=== PATIENT | male | born 1940 | race Caucasian/White ===

== ENCOUNTER 2018-01-19 15:33 | Inpatient (IN) | payer MEDICARE, BC ==
[~2018-01-19 15:33] MED LIST: Iopamidol 370 76% 100 ML VIAL ONE
[2018-01-19] MEDS ORDERED: Famotidine/PF 20 mg/2ml Vial ONE (15:46)
[2018-01-19] MEDS ORDERED: Labetalol HCl 100 MG/20 ML VIAL SLOW IVP PRN (16:11)
[2018-01-19 16:51] VITALS: BMI 25.2
--- NOTE | 2018-01-19 17:10 | PRG ---
DATE OF SERVICE: 01/19/2018 SUBJECTIVE: Mr. Randall is a 77-year-old gentleman transferred from [facility] for stroke. His family brought him into the hospital for new onset weakness, confusion and altered mental status. He presented at [facility] where a noncontrast head CT was performed, which revealed the presence of a right thalamic stroke and no evidence for hemorrhage. Subsequent to that, he underwent a CT angiogram, which revealed the presence of occlusion or near occlusion of the right posterior cerebral artery. After that time, he had an MRI scan, which showed infarct in the right thalamic region and a small area of restricted diffusion within the right side of the brainstem. He was noted to become more lethargic with a worsening exam over the course of his evaluation. Due to concerns for enlarging thrombus involving the posterior circulation, he was then transferred to [place] for possible intervention. Of note, the patient was on a blood thinner, which prohibited use of TPA. The initial NIH score at [facility] was reported near 17. Upon arrival to [facility], he went straight to the angiogram suite. I examined him there where he had had a dramatic improvement in his exam. His speech was clear. He was alert and oriented x3. He had a grossly normal strength in both the upper and lower extremities. He reported limited use of his left arm due to prior shoulder injury and pain. His compliance review officer strength was strong bilateral. He reported some blurred vision but stated that was baseline for him as he has a history of cataracts. He denied double vision and he denied any field defects. He underwent cerebral angiography which revealed an occluded branch of the right posterior cerebral artery. I was not able to access that through an approach from the left vertebral artery. The right vertebral artery was hypoplastic. Given his overall dramatic improvement in exam, I did not push forward with any additional interventional component. He remained awake and stable throughout the procedure. The plan will be admission with consultation to physical therapy and occupational therapy and the hospitalist service for medical management. He will undergo swallow evaluation and further determination as to risk factors for stroke. ESE
[2018-01-19] MEDS ORDERED: HumaLOG 300 UNITS/3 ML VIAL SC PRN ×2 (17:22)
[2018-01-19] MEDS ORDERED: Dextrose 5% in Water 1,000 ML IV PRN (17:22)
[2018-01-19] MEDS ORDERED: Dextrose 50% Abboject 50 ML SYRINGE SLOW IVP PRN (17:22)
[2018-01-19] MEDS: Sodium Chloride 0.9% 1,000 ML IV SCH (19:00)
--- NOTE | 2018-01-19 19:05 | CON ---
DATE OF CONSULTATION: 01/19/2018 TIME OF SERVICE: 1700. REASON FOR CONSULTATION: Medical management after acute stroke and coronary angiography. REQUESTING PHYSICIAN: Mekhi Bullock M.D. PRIMARY CARE PHYSICIAN: [facility]. HISTORY OF PRESENT ILLNESS: Mr. Randall is a 77-year-old male with history of bilateral lower extremit y DVTs, diverticulosis, hyperlipidemia, diabetes, hypothyroidism, who presents to an outside Emergenc y Department for evaluation of acute onset of left-sided weakness. The patient was apparently in [facility] and 2 hours prior to arrival there, the patient developed weakness to the left arm and leg, numbn ess to his face and left arm and slurred speech. He slumped over in his seat at [facility] and EMS was a ctivated. He was transported to [facility] where he did complain of a headache. He has comp lained of his left face being numb and right hand being numb as well. There, he underwent a CT angiogram that showed right posterior cerebral artery occlusion just distal to the origin and underwent an MRI of the brain that showed a right subacute thalamic infarct. Due t o the history of being on Xarelto, he is not a candidate for TPA, he was subsequently flown here for intervention. The patient arrived here by helicopter, was taken to the geophysical laboratory supervisor with Dr. Bullock. Cer ebral angiography revealed the right posterior cerebral artery to be patent. There was some distal r ight anterior cerebral artery occlusion, but it was too distal to be able to intervene on. Also did not explain the patient's symptoms. The procedure was subsequently aborted. The patient was transfe rred to the ICU post-procedure. We have been consulted for medical management. The patient is still currently sleepy from the [facility]. Denies any fevers or chills, nausea and vomiting. His strength in his left arm and leg is marke dly improved and the sensation is intact. PAST MEDICAL HISTORY: 1. Deep vein thrombosis, bilateral lower extremities. 2. Chronic anticoagulation with Xarelto. 3. Diverticulosis. 4. Hyperlipidemia. 5. Diabetes mellitus type 2. 6. Hypothyroidism. PAST SURGICAL HISTORY: Include, 1. Colonoscopy last in 2011. 2. Umbilical hernia repair in 1975. 3. Left TKA in February 2017. 4. Tonsillectomy in 1962. 5. He had a skull fracture depression correction in 1977 after getting kicked in the head by a horse . HOME MEDICATIONS: 1. Lipitor 40 mg p.o. at bedtime. 2. Glucovance (glyburide/metformin) 2.5/500 one p.o. q.a.m. 3. Levothyroxine 75 mcg daily. 4. Xarelto 20 mg daily. The patient has been on MiraLax, MetroGel and Dexter, but is taking these at present. ALLERGIES: NKDA. FAMILY HISTORY: Negative for dad with Parkinson's. Mom with stroke in her older years. No history of premature diseases. SOCIAL HISTORY: Negative for habits x3. He is . His and son accompany him. We discuss ed advance directives. They immediately said he wanted to be a DNR, however, after explaining myself , the patient does want to be intubated, CPR to be performed and cardioversion if necessary if he schuler s not have a terminal illness. His does have an advanced directive/medical power of cream dipper an d will bring the documents. REVIEW OF SYSTEMS: All systems were reviewed and negative except as stated as per HPI. PHYSICAL EXAMINATION: VITAL SIGNS: He is afebrile, temperature is 98.7, pulse 64, blood pressure 110/64, respiratory rate 18, satting 99% on room air. GENERAL: He is awake. He is alert. He is oriented to person, place and time. He is in no acute di stress. He is somewhat groggy and still slurring speech a little bit, his family says from the [facility]. His speech was apparently better on arrival. HEENT: Normocephalic and atraumatic. His face is symmetrical. His pupils are equal, round and reac tive to light bilaterally, mucous membranes are moist. He has no visible lesion, no thrush. NECK: Supple. There is no lymphadenopathy, JVD or thyromegaly. He has normal carotid upstrokes wit hout bruits. LUNGS: Clear to auscultation bilaterally. No wheezing, no rales, no rhonchi. No prolonged expirato ry phase. CARDIOVASCULAR: Normal S1, S2. He is regular. He has no audible murmurs. ABDOMEN: Soft, is nontender, nondistended. No mass, no organomegaly. Normoactive bowel sounds pres ent in all 4 quadrants. EXTREMITIES: No cyanosis, no clubbing, no edema. SKIN: Warm, moist and well perfused. No rashes or lesions. Does have a postop dressing present on his right groin where they went for arterial access. NEUROLOGIC: Cranial nerves II-XII are grossly intact. He has 5/5 strength in both of his extremitie s, this includes the upper and lower extremity extensors, flexors of the elbows and knees and the wri sts and ankles. He does not have any focal neurologic deficits. Speech is somewhat slurred as if he was intoxicated or on pain meds. He does not appear to have any dysarthria. MUSCULOSKELETAL: Normal to inspection. He has crepitus in his left shoulder. The large joints appe ared normal. His left knee incision is well healed. LABORATORY DATA: Sodium 140, potassium 4.1, chloride 104, bicarb 28, BUN 9, creatinine 0.51, calcium 9.2 and glucose 186. His CBC showed a white count of 5.4, hemoglobin is 15.5, hematocrit of 45.3 an d platelet count is 195,000. PT was normal at 13.8 and INR was 1.1. Liver function completely withi n normal limits. CT angiogram of the right posterior cerebral artery occlusion just distal to the origin and MRI of th e brain showed a new/recent anterior right thalamic infarct. ASSESSMENT AND PLAN: 1. Acute posterior cerebral artery stroke: The patient is on Xarelto, which probably saved his life . He is not on any antiplatelet agents. He is going to get aspirin per Neurosurgery in the morning. We will suspect he will need to be on his Xarelto long-term plus a baby aspirin. Stroke service segura s been activated. We will follow up with Neurology recommendations. PT, OT and ST have been consult ed, though he does not appear to have any current deficits. He is normally on Lipitor 40 mg p.o. at bedtime. We will get a morning lipid profile and increase it to 80 mg. Whatever his cholesterol is, it is likely going to be too high. 2. Diabetes mellitus type 2. The patient will be on hold for his Glucovance for now. He did have c ontrast with his angiograms and this will try to protect his kidneys. We will use sliding scale insu sara for correction. 3. Hypothyroidism, on levothyroxine. We will continue. 4. History of deep venous thrombosis on Xarelto. We will continue if okay with Dr. Bullock. 5. Hyperlipidemia, as above. 6. Diverticulosis, not currently active. Thank you very much for this consult. We will follow along with you.
[2018-01-19] MEDS ORDERED: Rivaroxaban 10 MG TAB PO SCH (21:00)
[2018-01-20] MEDS: Atorvastatin Calcium 40 MG TAB PO SCH ×2 (01:11→19:37)
[2018-01-20] MEDS: Sodium Chloride 0.9% 1,000 ML IV SCH ×3 (04:48→21:43)
[2018-01-20 05:16] LABS: #Lymphocytes 0.7 thou/uL (1.20-3.40); #Monocytes 0.1 thou/uL (0.11-0.59); #Neutrophils 5.3 thou/uL (1.40-6.50); %Basophils 0.2 % (0.0-1.0); %Eosinophils 0.1 % (0.0-10.0); %Lymphocytes 11.7 % (21.0-51.0); %Monocytes 1.9 % (0.0-10.0); Hemoglobin 14.9 g/dL (14.0-18.0); Mean Corpuscular Hemoglobin 32.3 pg (27.0-31.0); Mean Corpuscular Volume 97.8 fl (80.0-94.0); Mean Platelet Volume 5.8 fL (7.4-10.4); Platelet Count 193 thou/uL (130-400); RBC Distribution Width 11.6 % (11.5-14.5); Red Blood Cell (RBC) Count 4.61 mill/uL (4.70-6.10); White Blood Cell (WBC) Count 6.2 thou/uL (4.8-10.8)
[2018-01-20 05:17] LABS: Hemoglobin A1c 6.1 % (4.0-6.0)
[2018-01-20 05:40] LABS: Anion Gap 12 mmol/L (10-20); BUN (Urea Nitrogen) 9 mg/dL (8.4-25.7); Calc. Creatinine Clearance 100 mL/min (70-130); Calcium 8.5 mg/dL (7.8-10.44); Carbon Dioxide 21 mmol/L (23-31); Cardiac Risk 4.3 (Less than 4.5); Chloride 108 mmol/L (98-107); Cholesterol 196 mg/dl (< 200 Desired); Estimated GFR-MDRD Greater than 90; Glucose 196 mg/dL (83-110); HDL Cholesterol 46 mg/dL (>60 Neg Risk); LDL Cholesterol, Calculated 140 mg/dL; Magnesium 1.9 mg/dL (1.6-2.6); Potassium 3.9 mmol/L (3.5-5.1); Sodium 137 mmol/L (136-145); Triglycerides 50 mg/dL (Less than 150)
[2018-01-20] MEDS: Levothyroxine Sodium 75 MCG TAB PO SCH (07:16)
--- NOTE | 2018-01-20 09:46 | CON ---
DATE OF CONSULTATION: 01/20/2018 HISTORY: Mr. Randall is a 77-year-old male who was admitted with a thrombotic cerebrovascular accident . He went to the [facility] for a workup with Dr. Bullock last night. No interventions were needed. He subsequently was admitted to the Critical Care Unit. PAST MEDICAL HISTORY: 1. Remarkable for DVT, on chronic anticoagulation. 2. Diverticulosis. 3. Lipid disorder. 4. Diabetes. 5. Hypothyroidism. 6. History of a herniorrhaphy. 7. Knee replacement. 8. History of tonsillectomy. 9. History of a skull fracture after being kicked by a horse. MEDICATIONS: Prior to admission, he was on Lipitor, Glucovance, Synthroid, Xarelto. ALLERGIES: He reports no drug allergies. FAMILY HISTORY: Positive for vascular disease. Negative for lung disease at an early age. SOCIAL HISTORY: He is nonsmoker, nondrinker. His son and his are in the room. REVIEW OF SYSTEMS: Not obtainable. PHYSICAL EXAMINATION: GENERAL: He is mumbling. He will answer questions and say he is okay. He is weaker on the left lev n on the right. He is left handed according to his son. VITAL SIGNS: Blood pressure 103/47, heart rate is in the high 40s to low 50s in sinus rhythm. Respiratory rate is in the teens, O2 sat 94%. HEENT: Sclerae is anicteric. NECK: Supple. LUNGS: Clear. HEART: Regular rhythm. S1 and S2 are normal. ABDOMEN: Soft, nontender. EXTREMITIES: Warm without clubbing, cyanosis, or edema. LABORATORY DATA: White count 6.2, hemoglobin 14.9, platelets 193. Sodium 137, potassium 3.9, chloride 108, bicarbonate 21, BUN 9, creatinine 0.66. IMPRESSION: Thrombotic cerebrovascular accident, clinically stable at this time. Protecting his air way. Swallowing evaluation will be performed. This is a 50-minute consult, greater than 50% of the time was spent on the unit coordinating care.
--- NOTE | 2018-01-20 10:33 | PRG ---
DATE OF SERVICE: 01/20/2018 Mr. Randall was admitted yesterday for a posterior circulation infarct. His NIH score late yesterday w as 3. He has had some fluctuations in his exam and currently according to his nurse the NIH score is 7. He underwent CT examination early this morning which was negative for hemorrhage. The CT does r eveal a small thalamic infarct on the right side and a small infarct of the brain stem on the right s nikole. Both of these are consistent with infarcts that were present on his MRI scan prior to transfer and these do not appear to be unchanged in size, nor does there appear to be any significant edema or mass effect. I met with the family today. I indicated to them that I expect him to have fluctuations in his exam. I also reviewed with him all of his imaging. The plan will be ongoing medical management moving fo rward. They can resume his anticoagulants at any time. He will need aggressive physical therapy, oc cupational therapy, and almost certainly need inpatient rehab placement. He will undergo swallow dell luations over the next couple of days. He may need NG placement and potentially PEG placement as he continues to recover. My expectation with Mr. Randall is that cognitively he should be okay. He may h ave residual deficits with respect to weakness and some cranial nerve dysfunction, but only time will tell and I explained to the family that this recovery process can be a long drawn out one. We will repeat CT examination tomorrow. We will keep him in the ICU throughout the remainder of the day grace szymanski
--- NOTE | 2018-01-20 11:50 | CON ---
DATE OF CONSULTATION: 01/20/2018 CONSULTING PHYSICIAN: Dr. Bullock IMPRESSION: Right thalamic and brainstem infarct resulting in some ophthalmoplegia, left facial droo p, significant dysarthria and left upper extremity weakness. The patient was on Xarelto prior to the infarct. PLAN: 1. Aspirin has been started. 2. Carotid ultrasound. 3. Speech therapy evaluation of swallowing and determine whether a need for PEG tube placement is ne cessary. Mr. Randall is a 77-year-old man who was in a good state of health prior to developing some left-sided weakness. He was seen at the [facility] where CT angiogram showed a right posterior ce rebral artery occlusion. MRI of the brain showed a right subacute thalamic infarct as well as appare ntly some right brain stem ischemic injury. The patient was taken to the Corporate Law Specialist by Dr. Bullock. Unf ortunately, nothing was able to be done due to the distal nature of the occlusions. Apparently there was some right anterior cerebral artery stenosis as well. He has been taken to the ICU where he has continued to act a bit unusual with some picking and fetching at the linens and not keeping his eyes open and acting appropriately. PAST MEDICAL HISTORY: DVT, diverticulitis, hyperlipidemia, diabetes, hypothyroidism. MEDICATIONS: Lipitor, Glucovance, levothyroxine, and Xarelto. ALLERGIES: None. SOCIAL HISTORY: No tobacco use. FAMILY HISTORY: Noncontributory. REVIEW OF SYSTEMS: Not obtainable. PHYSICAL EXAMINATION: GENERAL: He is a well-nourished elderly man lying in bed in no distress. VITAL SIGNS: Blood pressure 104/50, pulse 49, respirations 15, saturations 96%. HEENT: Pupils are pinpoint and nonreactive. His eyes appear to be conjugate, doll's head maneuver d id not elicited lateral deviation. I could not get the patient to move his eyes in an appropriate fa shion to commands. NECK: Supple, no lymphadenopathy. EXTREMITIES: No cyanosis. NEUROLOGIC: He is lying with his eyes closed. He moves his right arm spontaneously as if he was ethan tyler out for things. There is a left facial droop. The left upper extremity could not be held up a gainst gravity. Left lower extremity was a bit difficult to test in that he offered resistance to ho lding the leg down to the bed, but would not raise it appropriately. Gait was not testable. No abno rmal movements were seen. EKG shows sinus bradycardia. SUMMARY: Elderly man with a thrombotic event in the posterior circulation with some significant defi cits on the left side. I have explained the condition to the family. I agree with the addition of a spirin. We can proceed with his workup and rehab plans.
--- NOTE | 2018-01-20 12:13 | CT ---
PRELIMINARY REPORT/[facility]/EMERGENTY AFTER-HOURS PROCEDURE CT Head Without Intravenous Contrast CLINICAL HISTORY: 77 years old, male; Signs and symptoms; Other: Stroke TECHNIQUE: Axial computed tomography images of the head/brain without intravenous contrast. COMPARISON: No relevant prior studies available. FINDINGS: Age-indeterminate right thalamic infarction on image 17 Brain: Mild volume loss No hemorrhage. Mild white matter disease. Chronic right basal ganglia lacunar infarction No edema. Ventricles: Unremarkable. No ventriculomegaly. Bones/joints: Unremarkable. No acute fracture. Soft tissues: Unremarkable. Sinuses: Unremarkable as visualized. No acute sinusitis. Mastoid air cells: Unremarkable as visualized. No mastoid effusion. IMPRESSION: Age-indeterminate right thalamic infarction which may be acute/subacute. Further evaluation as clinic ally indicated with MRI No intracranial hemorrhage. Please see discussion above. Thank you for allowing us to participate in the care of your patient. Dictated and Authenticated by: Quinn Andrade MD 01/20/2018 4:38 AM Central Time ([place] & [place]) CT BRAIN WITHOUT CONTRAST: History: Stroke. Comparison: None. Technique: Noncontrast head CT is performed from skull base to skull vertex. FINDINGS: This report is in agreement with the preliminary report by [facility]. Hypoattenuation in the right thalamus is indeterminate. MRI is recommended. POS: CURT
--- NOTE | 2018-01-20 13:06 | PDOC.PN ---
- Subjective Encounter Start Date: 01/20/18 Encounter Start Time: 13:15 Subjective: Patient unchanged today. Mental status and alertness fluctuating. Denies -: pain. Not able to communicate anything further. - Objective MAR Reviewed: Yes Vital Signs & Weight: Vital Signs (12 hours) Temp Pulse Pulse BP BP Pulse Ox Pulse Ox 01/20/18 12:00 97.6 F 01/20/18 10:54 90/55 L 90/60 01/20/18 10:09 52 L 58 L 101/49 L 98/68 98 96 01/20/18 08:00 97.4 F L Weight Admit Weight 166 lb Weight 166 lb 0.129 oz Most Recent Monitor Data Heart Rate from ECG 53 NIBP 103/47 NIBP BP-Mean 60 Respiration from ECG 16 SpO2 97 I&O: 01/19/18 01/20/18 01/21/18 06:59 06:59 06:59 Intake Total 1018 0 Output Total 550 1 Balance 468 -1 Result Diagrams: 01/20/18 04:51 01/20/18 04:51 Additional Labs: Accuchecks 01/20/18 01/19/18 11:22 22:16 POC Glucose 165 H 180 H Phys Exam - Physical Examination Constitutional: NAD HEENT: moist MMs Respiratory: no wheezing, no rales, no rhonchi Cardiovascular: RRR, no significant murmur Gastrointestinal: soft, positive bowel sounds Musculoskeletal: no edema Neurological: moves all 4 limbs Deviation from normal: dysphasia, unable to understand his speech, sleepy but arousable Dx/Plan (1) Right thalamic infarction Code(s): I63.9 - CEREBRAL INFARCTION, UNSPECIFIED Status: Acute (2) 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 Code(s): I63.211 - CEREBRAL INFRC DUE TO UNSP OCCLS OR STENOSIS OF R VERTEB ART ; I63.22 - CEREB INFRC DUE TO UNSP OCCLS OR STENOSIS OF BASILAR ARTERY Status : Acute (3) Dysphagia Code(s): R13.10 - DYSPHAGIA, UNSPECIFIED Status: Acute Comment: MBS and water Gustafson protocol per speech therapy recs, not safe to eat at this point (4) Diabetes mellitus type 2 in nonobese Code(s): E11.9 - TYPE 2 DIABETES MELLITUS WITHOUT COMPLICATIONS Status: Chronic (5) Hyperlipidemia Code(s): E78.5 - HYPERLIPIDEMIA, UNSPECIFIED Status: Chronic Comment: LDL elevated at 140 on Atorvastatin 40mg, increased to 80mg daily (6) Hypothyroidism Code(s): E03.9 - HYPOTHYROIDISM, UNSPECIFIED Status: Chronic (7) Hx of deep venous thrombosis Code(s): Z86.718 - PERSONAL HISTORY OF OTHER VENOUS THROMBOSIS AND EMBOLISM Status: Chronic Comment: on chronic Xarelto (8) Diverticulosis Code(s): K57.90 - DVRTCLOS OF INTEST, PART UNSP, W/O PERF OR ABSCESS W/O BLEED Status: Chronic - Plan cont current plan of care, PT/OT, speech therapy, DVT proph w/SCDs possible MBS tomorrow if more alert * . - Discharge Encounter end time: 13:30
[2018-01-20] MEDS: Aspirin 325 mg Enteric Coated Tablet PO SCH (14:46)
--- NOTE | 2018-01-20 16:11 | ULT ---
CAROTID ULTRASOUND: HISTORY: Stroke. COMPARISON: None. TECHNIQUE: Jaimes scale, color flow, Doppler imaging, and spectral waveform analysis was performed of the carotid and vertebral arteries. FINDINGS: RIGHT CAROTID: No significant atherosclerotic disease. Peak systolic velocity of the common carotid artery is 51.5 cm/s. Peak systolic velocity of the internal carotid artery is 38.5 cm/s. Systolic ICA to CCA ratio is 0.75. LEFT CAROTID: No significant atherosclerotic disease. Peak systolic velocity of the common carotid artery is 59.8 cm/s. Peak systolic velocity of the internal carotid artery is 50.3 cm/s. Systolic ICA to CCA ratio is 0.84. Antegrade flow in bilateral vertebral arteries. IMPRESSION: No sonographic evidence of hemodynamically significant stenosis. POS: CURT
[2018-01-20] MEDS ORDERED: Rivaroxaban 10 MG TAB PO SCH (21:00)
[2018-01-20] MEDS: Enoxaparin Sodium 80 MG/0.8 ML SYRINGE SC SCH (21:41)
[2018-01-20] MEDS ORDERED: Lorazepam 2 MG/ML VIAL SLOW IVP SCH (21:45)
[2018-01-21] MEDS: Levothyroxine Sodium 75 MCG TAB PO SCH (06:20)
[2018-01-21] MEDS: Aspirin 325 mg Enteric Coated Tablet PO SCH (07:16)
[2018-01-21] MEDS: Atorvastatin Calcium 40 MG TAB PO SCH (07:16)
[2018-01-21] MEDS: Sodium Chloride 0.9% 1,000 ML IV SCH ×2 (08:11→22:32)
[2018-01-21] MEDS: Enoxaparin Sodium 80 MG/0.8 ML SYRINGE SC SCH ×2 (08:11→22:32)
--- NOTE | 2018-01-21 09:45 | PDOC.PN ---
- Subjective Encounter Start Date: 01/21/18 Encounter Start Time: 11:00 Subjective: Patient agitated last night. No improvement with Ativan. Just fell asleep -: a few minutes ago. - Objective MAR Reviewed: Yes Vital Signs & Weight: Weight Admit Weight 166 lb 0.129 oz Weight 166 lb 0.129 oz Most Recent Monitor Data Heart Rate from ECG 63 NIBP 104/61 NIBP BP-Mean 66 Respiration from ECG 24 SpO2 95 I&O: 01/20/18 01/21/18 01/22/18 06:59 06:59 06:59 Intake Total 1018 2535 0 Output Total 550 4 0 Balance 468 2531 0 Result Diagrams: 01/20/18 04:51 01/20/18 04:51 Additional Labs: Accuchecks 01/21/18 01/21/18 01/20/18 06:28 00:02 16:40 POC Glucose 96 127 H 139 H 01/20/18 11:22 POC Glucose 165 H Phys Exam - Physical Examination Constitutional: NAD HEENT: moist MMs Respiratory: no wheezing, no rales, no rhonchi Cardiovascular: RRR, no significant murmur Gastrointestinal: soft, positive bowel sounds Deviation from normal: sleeping, will not try to wake up at this point Dx/Plan (1) Right thalamic infarction Code(s): I63.9 - CEREBRAL INFARCTION, UNSPECIFIED Status: Acute (2) 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 Code(s): I63.211 - CEREBRAL INFRC DUE TO UNSP OCCLS OR STENOSIS OF R VERTEB ART ; I63.22 - CEREB INFRC DUE TO UNSP OCCLS OR STENOSIS OF BASILAR ARTERY Status : Acute (3) Dysphagia Code(s): R13.10 - DYSPHAGIA, UNSPECIFIED Status: Acute Comment: water Gustafson protocol per speech therapy recs, not safe to eat at this point, possible MBS when more alert (4) Diabetes mellitus type 2 in nonobese Code(s): E11.9 - TYPE 2 DIABETES MELLITUS WITHOUT COMPLICATIONS Status: Chronic (5) Hyperlipidemia Code(s): E78.5 - HYPERLIPIDEMIA, UNSPECIFIED Status: Chronic Comment: LDL elevated at 140 on Atorvastatin 40mg, increased to 80mg daily (6) Hypothyroidism Code(s): E03.9 - HYPOTHYROIDISM, UNSPECIFIED Status: Chronic (7) Hx of deep venous thrombosis Code(s): Z86.718 - PERSONAL HISTORY OF OTHER VENOUS THROMBOSIS AND EMBOLISM Status: Chronic Comment: can't swallow Xarelto right now, giving full dose Lovenox (8) Diverticulosis Code(s): K57.90 - DVRTCLOS OF INTEST, PART UNSP, W/O PERF OR ABSCESS W/O BLEED Status: Chronic - Plan cont current plan of care, PT/OT, speech therapy, DVT proph w/lovenox, DVT proph w/SCDs * . - Discharge Day Encounter end time: 11:10
--- NOTE | 2018-01-21 13:29 | PRG ---
DATE OF SERVICE: 01/21/2018 SUBJECTIVE: Mr. Randall remains about the same. There has really been no significant neurological imp rovement. He is intermittently interactive with his family. PHYSICAL EXAMINATION: VITAL SIGNS: He is afebrile, heart rate 52, respiratory rate 20, oximetry is 97% on room air, blood pressure 104/61. LUNGS: Clear. HEART: Regular rhythm. ABDOMEN: Soft. IMPRESSION AND PLAN: Status post thrombotic cerebrovascular accident. He will be transferred to the stroke unit today. He has met with his daughter and his and answered all their questions.
[2018-01-21] MEDS ORDERED: Haloperidol Lactate 5 MG/ML VIAL SLOW IVP PRN (14:14)
--- NOTE | 2018-01-21 16:24 | CON ---
DATE OF CONSULTATION: 01/21/2018 REASON FOR CONSULTATION: Recent cerebrovascular accident and atrial fibrillation. HISTORY OF PRESENT ILLNESS: Mr. Randall is a 77-year-old gentleman who has no previous history of unde rlying atrial fibrillation, recently presented with stroke-like symptoms. He was seen and evaluated at [facility]. He was sent emergently to [facility] via helicopter. He underwent angio by Dr. Bullock. Results are currently pending. Family states he has been somnolent, sleeping all day and not been very arousable. He had a brief ep isode of atrial fibrillation and converted back to sinus. He has no previous history of underlying a trial fibrillation. He is on chronic Xarelto at 20 mg 1 p.o. q.a.m. for a chronic DVT. PAST MEDICAL HISTORY: Diverticulosis, hyperlipidemia, diabetes mellitus, DVT, colonoscopy, hernia re pair, total knee replacement, tonsillectomy and skull fracture. MEDICATIONS: Xarelto 20 mg daily, levothyroxine, Glucovance and Lipitor. ALLERGIES: None. FAMILY HISTORY: Negative for CAD. SOCIAL HISTORY: Negative tobacco or alcohol use. REVIEW OF SYSTEMS: Unobtainable. PHYSICAL EXAMINATION: VITAL SIGNS: Blood pressure 99/62, pulse 54, temperature 97.7. GENERAL: Patient is currently somnolent and does not awaken easily to voice. NEUROLOGIC: The patient is alert and oriented times 3 with no focal neurologic deficits. HEENT: Sclerae without icterus. Mouth has moist mucous membranes with normal pallor. NECK: No JVD. Carotid upstroke brisk. No bruits bilaterally. LUNGS: Clear to auscultation with unlabored respirations. BACK: No scoliosis or kyphosis. CARDIAC: Regular rate and rhythm with normal S1 and S2. No S3 or S4 noted. No significant rubs, murmurs, thrills, or gallops noted throughout the precordium. PMI is not displa philly. There is no parasternal heave. ABDOMEN: Soft, nontender, nondistended. No peritoneal signs present. No hepatosplenomegaly. No ab normal striae. EXTREMITIES: 2+ femoral and 2+ dorsalis pedis pulses. No cyanosis, clubbing, or edema. SKIN: No gross abnormalities. PERTINENT LABORATORY DATA: Hemoglobin 14.9, creatinine 0.9, glucose 196. IMPRESSION: 1. Brief episode of atrial fibrillation. 2. Cerebrovascular accident. 3. Diabetes mellitus. 4. History of deep venous thrombosis. RECOMMENDATIONS: It is unknown whether his recent CVA as a cause of his dysrhythmia of atrial fibril lation or whether atrial fibrillation is the primary that has caused an embolic CVA. At this point, it seems trivial given that he is currently on long-term anticoagulation therapy. He is on Xarelto at 20 mg 1 p.o. q.a.m., which is felt to be of full dose. Given the recent findings, I would recommend changing to Eliquis at 5 mg one p.o. b.i.d. The evidence seems to be a little quoc r versus Xarelto. He is currently not taking p.o. and has failed swallow study. We will continue Lo venox at 80 mg subcutaneous b.i.d. until he is able to take p.o. Echo with Doppler pending and will be reviewed.
--- NOTE | 2018-01-21 18:15 | PRG ---
DATE OF SERVICE: 01/21/2018 SUBJECTIVE: Mr. Randall has now been transitioned from the ICU to the Stroke Unit. He is sleeping cur rently as his sleep-wake cycles are disrupted. Last night, he was quite agitated. I did give him a low dose of Valium to assist with sleep. I had a lengthy discussion again with the family today rega rding his diagnosis, images and plans moving forward. I have reached out and discussed his case with the rehabilitation counsellor and they will work to get him to rehab as soon as possible. He has had in the las t 24 hours, bouts of atrial fibrillation and sinus bradycardia. I also discussed with Dr. Ari marti. He will see the patient and make any adjustments as necessary. He is currently on Xarelto, which he was on prior to his admission, presumably for atrial fibrillation. Mr. Randall will need to undergo further evaluation with respect to his swallow. He will need to have a nutrition over the next 24 hours. If need be, we will use an NG tube. Depending on how sign ificant his swallow problem is, we may have to resort to a PEG.
[2018-01-22] MEDS: Dextrose 5% in Water 1,000 ML IV SCH ×2 (03:39→17:02)
[2018-01-22] MEDS: Sodium Chloride 0.9% 1,000 ML IV SCH (05:51)
[2018-01-22 06:04] LABS: #Eosinphils 0.2 thou/uL (0.0-0.7); #Lymphocytes 1.8 thou/uL (1.20-3.40); #Monocytes 0.8 thou/uL (0.11-0.59); #Neutrophils 3.9 thou/uL (1.40-6.50); %Basophils 0.5 % (0.0-1.0); %Eosinophils 3.4 % (0.0-10.0); %Lymphocytes 26.7 % (21.0-51.0); %Monocytes 11.6 % (0.0-10.0); %Neutrophils 57.8 % (42.0-75.0); Hemoglobin 14.9 g/dL (14.0-18.0); Mean Corpuscular Hemoglobin 32.9 pg (27.0-31.0); Mean Corpuscular Volume 96.8 fl (80.0-94.0); Mean Platelet Volume 6.3 fL (7.4-10.4); Platelet Count 141 thou/uL (130-400); RBC Distribution Width 11.8 % (11.5-14.5); Red Blood Cell (RBC) Count 4.54 mill/uL (4.70-6.10); White Blood Cell (WBC) Count 6.7 thou/uL (4.8-10.8)
[2018-01-22 06:16] LABS: Anion Gap 10 mmol/L (10-20); BUN (Urea Nitrogen) 10 mg/dL (8.4-25.7); Calc. Creatinine Clearance 103 mL/min (70-130); Calcium 7.9 mg/dL (7.8-10.44); Carbon Dioxide 23 mmol/L (23-31); Chloride 108 mmol/L (98-107); Estimated GFR-MDRD Greater than 90; Glucose 87 mg/dL (83-110); Potassium 3.4 mmol/L (3.5-5.1); Sodium 138 mmol/L (136-145)
[2018-01-22] MEDS: Levothyroxine Sodium 75 MCG TAB PO SCH (07:16)
[2018-01-22] MEDS: Aspirin 325 mg Enteric Coated Tablet PO SCH (07:17)
[2018-01-22] MEDS: Enoxaparin Sodium 80 MG/0.8 ML SYRINGE SC SCH (08:38)
--- NOTE | 2018-01-22 10:28 | PRG ---
DATE OF SERVICE: 01/22/2018 Mr. Randall continues to recover in the Stroke Unit from a small brain stem and right thalamic stroke. The told me late yesterday evening he was rather coherent with respect to his speech and able t o carry on a meaningful conversation. He continues to sleep quite a bit in the days and remains agit ated more so at night. Await disposition planning toward inpatient rehabilitation. He will have ano ther swallow evaluation performed today, but I am not optimistic he will pass. I did discuss this in more detail with Speech Therapy and they are under the impression that he may not do well with respe ct to his swallowing over the short term. As such, I did mention to his , the likely need for a PEG tube placement as he continues to recover from this stroke. I advocated for aggressive physical therapy and occupational therapy.
--- NOTE | 2018-01-22 12:02 | PDOC.PN ---
- Subjective Encounter Start Date: 01/22/18 Encounter Start Time: 12:05 -: non-verbal Subjective: Pt examined, family at bed side, no new complain - Objective MAR Reviewed: Yes Vital Signs & Weight: Vital Signs (12 hours) Temp Pulse Resp BP Pulse Ox 01/22/18 07:30 98.0 F 66 12 135/77 96 01/22/18 03:52 98.6 F 66 18 134/76 95 Weight Admit Weight 166 lb 0.129 oz Weight 166 lb 0.129 oz Most Recent Monitor Data Heart Rate from ECG 63 NIBP 104/61 NIBP BP-Mean 66 Respiration from ECG 24 SpO2 95 I&O: 01/21/18 01/22/18 01/23/18 06:59 06:59 06:59 Intake Total 2535 1918 Output Total 4 150 Balance 2531 1768 Result Diagrams: 01/22/18 05:50 01/22/18 05:50 Additional Labs: Accuchecks 01/22/18 01/22/18 01/21/18 05:50 02:50 21:30 POC Glucose 81 68 L 77 01/21/18 16:34 POC Glucose 80 Phys Exam - Physical Examination HEENT: PERRLA, sclera anicteric, TM's clear, oral pharynx no lesions Neck: no nodes, no JVD, supple, full ROM Respiratory: no wheezing, no rales, no rhonchi, clear to auscultation bilateral Cardiovascular: RRR Gastrointestinal: soft Musculoskeletal: no edema (Left side weakness) Dx/Plan - Plan plan discussed w/ family, PT/OT, social media assistant, speech therapy, DVT proph w/ heparin Dx/Plan (1) Right thalamic infarction Code(s): I63.9 - CEREBRAL INFARCTION, UNSPECIFIED Status: Acute (2) 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 Code(s): I63.211 - CEREBRAL INFRC DUE TO UNSP OCCLS OR STENOSIS OF R VERTEB ART ; I63.22 - CEREB INFRC DUE TO UNSP OCCLS OR STENOSIS OF BASILAR ARTERY Status : Acute (3) Dysphagia Code(s): R13.10 - DYSPHAGIA, UNSPECIFIED Status: Acute Comment: water Gustafson protocol per speech therapy recs, not safe to eat at this point, possible MBS when more alert (4) Diabetes mellitus type 2 in nonobese Code(s): E11.9 - TYPE 2 DIABETES MELLITUS WITHOUT COMPLICATIONS Status: Chronic (5) Hyperlipidemia Code(s): E78.5 - HYPERLIPIDEMIA, UNSPECIFIED Status: Chronic Comment: LDL elevated at 140 on Atorvastatin 40mg, increased to 80mg daily (6) Hypothyroidism Code(s): E03.9 - HYPOTHYROIDISM, UNSPECIFIED Status: Chronic (7) Hx of deep venous thrombosis Code(s): Z86.718 - PERSONAL HISTORY OF OTHER VENOUS THROMBOSIS AND EMBOLISM Status: Chronic Comment: can't swallow Xarelto right now, giving full dose Lovenox (8) Diverticulosis Code(s): K57.90 - DVRTCLOS OF INTEST, PART UNSP, W/O PERF OR ABSCESS W/O BLEED Status: Chronic - Plan cont current plan of care, PT/OT, speech therapy, DVT proph w/lovenox, DVT proph w/SCDs * . Review of Systems - Review of Systems Respiratory: Shortness of Breath Neurological: Weakness, Numbness - Medications/Allergies Allergies/Adverse Reactions: Allergies Allergy/AdvReac Type Severity Reaction Status Date / Time No Known Allergies Allergy Unverified 01/19/18 16:30 Medications: Current Medications Aspirin (Ecotrin) 325 mg PO DAILY [facility] Last Admin: 01/22/18 07:17 Dose: Not Given Atorvastatin Calcium (Lipitor) 80 mg PO HS [facility] Last Admin: 01/21/18 07:16 Dose: Not Given Dextrose/Water (Dextrose 50%) 25 gm SLOW IVP PRN PRN PRN Reason: Hypoglycemia Enoxaparin Sodium (Lovenox) 80 mg SC 0900,2100 [facility] Last Admin: 01/22/18 08:38 Dose: 80 mg Glucagon (Glucagon) 1 mg IM PRN PRN PRN Reason: Hypoglycemia Haloperidol Lactate (Haldol) 1 mg SLOW IVP Q4H PRN PRN Reason: Agitation Sodium Chloride (Normal Saline 0.9%) 1,000 mls @ 100 mls/hr IV .Q10H [facility] Last Admin: 01/22/18 05:51 Dose: Not Given Dextrose/Water (D5w) 1,000 mls @ 0 mls/hr IV .Q0M PRN; As Directed PRN Reason: Hypoglycemia Dextrose/Water (D5w) 1,000 mls @ 70 mls/hr IV .[id number] [facility] Last Admin: 01/22/18 03:39 Dose: 1,000 mls Insulin Human Lispro (Humalog) 0 units SC .MILD SLIDING SCALE PRN PRN Reason: Mild Correctional Scale Insulin Human Lispro (Humalog) 0 units SC .BEDTIME SLIDING SC PRN PRN Reason: Bedtime Correctional Scale Labetalol HCl (Normodyne) 20 mg SLOW IVP Q1H PRN PRN Reason: BP > 220/110 Levothyroxine Sodium (Synthroid) 75 mcg PO 0600 [facility] Last Admin: 01/22/18 07:16 Dose: Not Given
--- NOTE | 2018-01-22 13:00 | RAD ---
MODIFIED BARIUM SWALLOW: TECHNIQUE: The patient was given different consistencies of barium under fluoroscopy to assess swallowing. INDICATION: Dysphagia. Prior stroke with feeding difficulties. Intracerebral etiology. EXPOSURE: 2.3 minutes fluoro. 0.697 uGy*^cm2. FINDINGS: There is moderate swallowing dysfunction. Oral phase dysfunction is noted and there is premature spi llage with pooling in the vallecula and piriform sinuses with all consistencies. Mild laryngeal pene tration noted with thin consistencies. No aspiration identified. POS: [facility]
--- NOTE | 2018-01-22 13:53 | PDOC.CTH ---
<Manju Sheehan - Last Filed: 01/22/18 13:49> Cardiology Progress Note - Subjective The pt seen and examined. No overnight events. He was very drowsy; however, he could follow up commands and oriented to his name. He could not recall president of [facility] side weakenss. - Objective Vital Signs Temp Pulse Resp BP Pulse Ox 01/22/18 08:00 98.0 F 66 12 01/22/18 07:30 98.0 F 66 12 135/77 96 01/22/18 03:52 98.6 F 66 18 134/76 95 Admit Weight 166 lb 0.129 oz Weight 166 lb 0.129 oz 01/21/18 01/22/18 01/23/18 06:59 06:59 06:59 Intake Total 2535 1918 Output Total 4 150 Balance 2531 1768 - Physical Examination General/Neuro: alert & oriented x3 Neck: no JVD present Lungs: other: (coarse and diminished at bases) Heart: RRR Abdomen: soft Extremities: other: (no edema) - Telemetry Telemetry Rhythm: SR 58 - Labs Result Diagrams: 01/22/18 05:50 01/22/18 05:50 - Assessment/Plan 1. Rt thalamic infarction - 2. short periods of Afib - remains in SR; on Lovenox 80mg BID; unable to administer PO med due to dysphagia 3. Hyperlipidemia - on Lipitor 80mg daily; unable to administer PO med due to dysphagia 4. Hypothyrodism - unable to administer PO med due to dysphagia 5. DM type 2 - on D5 70ml/h; managed by PCP 6. Hx of DVT - FHx of proclivity to clotting; On Lovenox 80mg BID; possible change to Eliquis 5mg BID MAR reviewed Review of Systems - Review of Systems Constitutional: reports: see HPI EENTM: reports: see HPI Respiratory: reports: see HPI Cardiac (ROS): reports: see HPI ABD/GI: reports: see HPI : reports: see HPI Musculoskeletal: reports: see HPI <Gissel Hollis - Last Filed: 01/22/18 15:50> Cardiology Progress Note - Objective Vital Signs Temp Pulse Pulse Resp BP BP Pulse Ox 01/22/18 13:56 62 153/56 H 01/22/18 08:00 98.0 F 66 12 01/22/18 07:30 98.0 F 66 12 135/77 96 01/22/18 03:52 98.6 F 66 18 134/76 95 Admit Weight 166 lb 0.129 oz Weight 166 lb 0.129 oz 01/21/18 01/22/18 01/23/18 06:59 06:59 06:59 Intake Total 2535 1918 Output Total 4 150 Balance 2531 1768 - Labs Result Diagrams: 01/22/18 05:50 01/22/18 05:50 - Assessment/Plan Pt. seen and eval. by me. I agree with the A/P by the FAMILY CONSUMER SCIENCE TEACHER. When I visited with the pt. he was so lethargic that he would not awake to give any answers or discussion. I will check an echo for eval. of the LV function.
[2018-01-22] MEDS: Atorvastatin Calcium 40 MG TAB PO SCH (20:46)
[2018-01-23] MEDS: Levothyroxine Sodium 75 MCG TAB PO SCH (04:59)
--- NOTE | 2018-01-23 05:49 | CON ---
DATE OF CONSULTATION: 01/22/2018 REASON FOR CONSULTATION: Request for PEG-tube placement. HISTORY OF PRESENT ILLNESS: Mr. Randall is a 77-year-old gentleman who came in with an acute stroke on 01/19/2018. He was transferred from [facility], where he gone in for new onset weakness , confusion, altered mental status, and noncontrast CT which revealed right thalamic stroke, no hemor rhage. CT angio revealed occlusion near the right posterior cerebral artery. MRI showed infarction of the right thalamic region, small restricted diffusion in the right side of the brain stem, is gett ing more lethargic during that time. Due to concern for enlarging thrombus, he was transferred to [facility] for possible intervention. The patient is on blood thinner which prohibited use of tPA. In the angiogram suite, Dr. Mekhi Bullock, found to be alert and oriented. No intervention was p erformed as he had clinically improved and that was I wish to open the stent. He was admitted to the ICU and then in the stroke unit after that. He is on chronic anticoagulation for history of DVTs in the past. Now, his family and nurses have noted that he was fairly coherent and in conversation. Romana lopez was evaluated again for a swallowing and did not do well in that test and we have been asked to see him regarding PEG placement. Clinically, he has been stable. The family notes he has been awake. He is without complaints. There have been no other untoward events during his hospitalization. He h as been seen by Cardiology and Neurology as well for an episode of atrial fibrillation. He has been change from Xarelto to Eliquis, this seems to be a little bit better there in terms of rectal bleedin g with regard to that. Presently, he is on Lovenox and not the Eliquis since he is not swallowing we ll. PAST MEDICAL HISTORY: DVT, diverticulitis, hyperlipidemia, diabetes, hypothyroidism, history of skul l fracture being kicked by a horse. MEDICATION: Lipitor, Glucovance, levothyroxine, and Xarelto. ALLERGIES: None known allergies. SOCIAL HISTORY: No tobacco use. Not a heavy drinker. FAMILY HISTORY: Noncontributory. PAST SURGICAL HISTORY: Notable for umbilical hernia repair, knee replacement, tonsillectomy. PRESENT MEDICATIONS HERE IN THE HOSPITAL: Lipitor, dextrose, Lovenox 80 q.12, Haldol p.r.n., Humalog , Normodyne, and Synthroid. PHYSICAL EXAMINATION: GENERAL: He is resting in bed. He is arousable, will open his eyes. Family notes he was talked wit h him today. VITAL SIGNS: Temperature is 97.3, pulse 68, blood pressure 143/86. LUNGS: Clear. CARDIOVASCULAR: Regular rate and rhythm without clicks or murmurs. ABDOMEN: Soft, nontender, without rebound or guarding. Umbilical hernia repair noted. There is no palpable hepatosplenomegaly. There is no shifting dullness or fluid wave. LABORATORY STUDIES: White count 6.7, hemoglobin 14, platelet count 141. Sodium 138, potassium 3.4, BUN and creatinine are 10 and 0.64. Modified barium swallow from today, I felt he would need a PEG t ube at this time, was not safe for oral intake. ASSESSMENT: Cerebrovascular accident with oropharyngeal dysphagia. PLAN: I have discussed with the family at bedside of risks, benefits, and possible complications of endoscopy and PEG tube placement including risk of infection, bleeding, reaction to medication, injur y to intraabdominal organs, and perforation. Discussed alternatives that is Dobhoff or NG tube feedi ngs or palliative care. I have talked with the family and talked with neurosurgery and wish to proce ed with a PEG. We will plan for doing that tomorrow. We will hold the Lovenox tomorrow morning.
[2018-01-23] MEDS: Aspirin 325 mg Enteric Coated Tablet PO SCH (09:31)
[2018-01-23] MEDS: Dextrose 5% in Water 1,000 ML IV SCH ×2 (09:36→23:00)
--- NOTE | 2018-01-23 11:21 | PDOC.CTH ---
<Manju Sheehan - Last Filed: 01/23/18 11:11> Cardiology Progress Note - Subjective The pt seen and examined. No overnight events. No cardiac complaints. He is still drowsy; however, he could open his eyes and able to talk more clear than yesterday. He can recall his daughter's name well today. - Objective Vital Signs Temp Pulse Resp BP Pulse Ox 01/23/18 08:00 96.5 F L 56 L 20 97 01/23/18 07:09 96.5 F L 56 L 20 107/59 L 94 L 01/23/18 03:06 99.1 F 64 16 136/83 93 L Admit Weight 166 lb 0.129 oz Weight 166 lb 0.129 oz 01/22/18 01/23/18 01/24/18 06:59 06:59 06:59 Intake Total 1918 1740 Output Total 150 Balance 1768 1740 - Physical Examination General/Neuro: alert & oriented x3 Neck: no JVD present Lungs: other: (coarse ) Heart: RRR Abdomen: soft Extremities: other: (No edema) - Telemetry Telemetry Rhythm: SR 70-80s PACs - Labs Result Diagrams: 01/22/18 05:50 01/22/18 05:50 - Assessment/Plan 1. Rt thalamic infarction - he is slightly more wake today. 2. short periods of Afib - 1 episode of Afib for 2 mins on 01/21/18; Remains in SR since; on Lovenox 80mg BID; unable to administer PO med due to dysphagia; Plan for PEG tube placement today 3. Hyperlipidemia - on Lipitor 80mg daily; unable to administer PO med due to dysphagia 4. Hypothyrodism - unable to administer PO med due to dysphagia 5. DM type 2 - on D5 70ml/h; managed by PCP 6. Hx of DVT - FHx of proclivity to clotting; On Lovenox 80mg BID; possible change to Eliquis 5mg BID MAR reviewed * Plan for PEG tube placement today * Echo was done today and the result is pending at this moment. Review of Systems - Review of Systems Constitutional: reports: no symptoms reported EENTM: reports: no symptoms reported Respiratory: reports: no symptoms reported Cardiac (ROS): reports: no symptoms reported ABD/GI: reports: no symptoms reported : reports: no symptoms reported Musculoskeletal: reports: no symptoms reported <Gissel Hollis - Last Filed: 01/24/18 16:03> Cardiology Progress Note - Objective Vital Signs Temp Pulse Resp BP Pulse Ox 01/24/18 15:26 99 F 75 16 90/74 92 L 01/24/18 11:53 97.7 F 82 18 94/63 91 L 01/24/18 08:00 97.7 F 72 18 96 01/24/18 07:55 97.7 F 72 18 111/75 93 L Admit Weight 166 lb 0.129 oz Weight 166 lb 0.129 oz 01/23/18 01/24/18 01/25/18 06:59 06:59 06:59 Intake Total 1740 608 90 Balance 1740 608 90 - Labs Result Diagrams: 01/24/18 04:34 01/24/18 04:34 - Assessment/Plan Pt. seen and eval. by me. I agree with the A/P by the TRAFFIC RATE ANALYST.
--- NOTE | 2018-01-23 13:20 | PDOC.PN ---
- Subjective Encounter Start Date: 01/23/18 Encounter Start Time: 13:18 Subjective: Pt seen and examined for cva and CAD -: pt failed swallow study, getting PEG - Objective MAR Reviewed: Yes Vital Signs & Weight: Vital Signs (12 hours) Temp Pulse Pulse Pulse Resp BP BP 01/23/18 11:35 62 62 116/70 123/67 01/23/18 11:12 98.1 F 62 20 01/23/18 08:00 96.5 F L 56 L 20 01/23/18 07:09 96.5 F L 56 L 20 01/23/18 03:06 99.1 F 64 16 BP Pulse Ox 01/23/18 11:35 01/23/18 11:12 118/78 93 L 01/23/18 08:00 97 01/23/18 07:09 107/59 L 94 L 01/23/18 03:06 136/83 93 L Weight Admit Weight 166 lb 0.129 oz Weight 166 lb 0.129 oz Most Recent Monitor Data Heart Rate from ECG 63 NIBP 104/61 NIBP BP-Mean 66 Respiration from ECG 24 SpO2 95 I&O: 01/22/18 01/23/18 01/24/18 06:59 06:59 06:59 Intake Total 1918 1740 Output Total 150 Balance 1768 1740 Result Diagrams: 01/22/18 05:50 01/22/18 05:50 Additional Labs: Accuchecks 01/23/18 01/23/18 01/22/18 09:57 05:59 23:08 POC Glucose 150 H 139 H 159 H 01/22/18 18:14 POC Glucose 101 Phys Exam - Physical Examination HEENT: PERRLA Neck: no nodes, no JVD, supple, full ROM Respiratory: no wheezing, no rales, no rhonchi, clear to auscultation bilateral Cardiovascular: RRR, no significant murmur, no rub Gastrointestinal: soft, non-tender, no distention, positive bowel sounds Musculoskeletal: no edema, pulses present (left side weakness) Dx/Plan - Plan * .
[2018-01-23] MEDS ORDERED: Lidocaine 1% PF 5 ML VIAL ONE (14:52)
[2018-01-23] MEDS ORDERED: PROPOFOL 200 MG/20 ML VIAL ONE (14:52)
[2018-01-23] MEDS ORDERED: CEFAZOLIN/Water 2 GM/20 ML SYRINGE ONE (20:02)
[2018-01-23] MEDS ORDERED: Promethazine HCl 25 MG/ML VIAL SLOW IVP PRN (21:05)
[2018-01-23] MEDS ORDERED: Promethazine HCl 25 MG/ML VIAL IM PRN (21:05)
[2018-01-23] MEDS ORDERED: Ondansetron HCl/PF 4 MG/2 ML Vial IVP PRN (21:05)
[2018-01-23] MEDS: Atorvastatin Calcium 40 MG TAB PO SCH (22:59)
--- NOTE | 2018-01-24 01:27 | OP ---
DATE OF PROCEDURE: 01/23/2018 PROCEDURE: Esophagogastroduodenoscopy with percutaneous gastrostomy tube placement. INDICATIONS FOR PROCEDURE: Dysphagia. DESCRIPTION OF PROCEDURE: After the risks and benefits of the procedure were explained to the patien t's surrogate including risks of infection, bleeding, perforation, reaction to anesthesia and/or pain , informed consent was obtained. The patient was then taken to the endoscopy suite where deep sedati on was administered via propofol and anesthesia support. After adequate sedation was achieved, the s tandard gastroscope was introduced into the mouth with intubation of the esophagus, stomach, and prox imal small intestine with the findings listed below. Once a full review of the intraluminal upper GI tract was performed, then confirmation of the positioning of the PEG tube placement was performed. Once good 1:1 compression and transillumination was achieved, a kerri was made in the skin for future reference using 1% lidocaine. The lidocaine was instilled in a wheal formation to provide superficia l anesthesia. The needle was then directed perpendicular to the skin and advanced into the stomach w ith back pressure as it was advanced. Upon withdrawal of the needle instillation of the remaining po rtion of the 1% lidocaine was performed to achieve adequate anesthesia along the tract. Then, using a small scalpel, a 1-cm vertical incision was made in the skin with minimal bleeding noted upon incis ion. An aspiration needle was then placed through the tract made by the instillation of lidocaine an d advanced into the stomach. After removal of the needle from the catheter, the catheter was left in place with a guidewire placed across the catheter. It was then retrieved in the anterior of the sto mach via snare, which was then removed from the GI tract through the mouth. The percutaneous gastros marcelo tube was then affixed to the end of the guidewire and using a push technique was then advanced t hrough the patient's mouth and through the anterior abdominal wall. Approximately 3 cm was noted at the skin with confirmation of positioning performed by reintubation with the endoscope confirmation i n the stomach. After confirmation was achieved, all equipment was then removed except for the gastro stomy tube, which was then cut to length with the adapter affixed to the end. The patient tolerated the procedure well with no immediate perioperative complications. FINDINGS: Esophagus: Normal appearing mucosa was seen in the proximal, mid and distal esophagus; ho wever, there was some mild increased erythema at the distal esophagus at the GE junction without any evidence of erosions, ulcerations, mass, lesions, or active/recent bleeding. Stomach: Normal appearing mucosa was seen in the gastric cardia, fundus, body, antrum, and incisura. There was no evidence of erosions, ulcerations, mass, lesions, or active/recent bleeding. Duodenum: Multiple superficial small ulcerations were seen in the duodenal bulb, measuring between 2 -4 mm in size, but the ulcerations were clean based, with no high risk stigmata of bleeding. There w as minimal surrounding mucosal erythema associated with these ulcerations, but no evidence of active/ recent bleeding. Normal appearing mucosa was then seen in the second portion of the duodenum. IMPRESSION: 1. Successful placement of a 20-[employer] [employer] percutaneous gastrostomy tube with 3 cm kiarra wing at the skin. 2. Multiple superficial duodenal ulcerations concerning for nonsteroidal anti-inflammatory drugs uhgo bianca Helicobacter pylori. 3. Mild esophagitis at the gastroesophageal junction that cannot be characterized by LA grading. RECOMMENDATIONS: 1. We will consult dietitian for recommendations regarding tube feeding. 2. Recommend placement of an abdominal binder on the patient to protect the PEG tube and prevent ramona dvertent removal of the PEG tube. 3. General PEG tube care per protocol and possible standards. 4. We would obtain H. pylori serum antibody and treat with triple therapy if positive. 5. We would avoid any NSAIDs given evidence of erosive duodenitis. 6. If the patient's PEG tube was inadvertently removed within the next 6-8 weeks. This could be con sidered a surgical emergency, which will require an urgent CT scan and/or general surgery consultatio n for evaluation.
[2018-01-24] MEDS: Morphine 4 MG/ML VIAL SLOW IVP PRN ×2 (02:00→05:36)
[2018-01-24 04:52] LABS: Platelet Count 189 thou/uL (130-400)
[2018-01-24 05:08] LABS: Calc. Creatinine Clearance 94 mL/min (70-130); Estimated GFR-MDRD Greater than 90
[2018-01-24] MEDS: Dextrose 5% in Water 1,000 ML IV SCH (05:48)
[2018-01-24] MEDS: Levothyroxine Sodium 75 MCG TAB PO SCH (07:07)
[2018-01-24] MEDS ORDERED: Aspirin 325 MG TAB PER TUBE SCH (09:00)
[2018-01-24] MEDS: Enoxaparin Sodium 80 MG/0.8 ML SYRINGE SC SCH (09:13)
[2018-01-24] MEDS: Aspirin 325 mg Enteric Coated Tablet PO SCH (10:18)
--- NOTE | 2018-01-24 11:25 | PDOC.CTH ---
<Manju Sheehan - Last Filed: 01/24/18 11:13> Cardiology Progress Note - Subjective The pt seen and examined. No overnight events. Per family, he was awake and spoke very well last night. He is very drowsy from receiving morphine at 0600 today. - Objective Vital Signs Temp Pulse Resp BP Pulse Ox 01/24/18 08:00 97.7 F 72 18 96 01/24/18 07:55 97.7 F 72 18 111/75 93 L 01/24/18 04:00 98.0 F 66 18 118/72 94 L 01/23/18 23:55 98.2 F 62 18 133/83 95 Admit Weight 166 lb 0.129 oz Weight 166 lb 0.129 oz 01/23/18 01/24/18 01/25/18 06:59 06:59 06:59 Intake Total 1740 608 Balance 1740 608 - Physical Examination Neck: carotid US brisk Lungs: other: (diminished at bases) Heart: RRR Abdomen: soft Extremities: other: (No edema) - Telemetry Telemetry Rhythm: SR PACs HR 85 - Labs Result Diagrams: 01/24/18 04:34 01/24/18 04:34 - Assessment/Plan 1. Rt thalamic infarction - he is slightly more wake today. According to , he was taking Xarolto daily as prescribed. 2. short periods of Afib - 1 episode of Afib for 2 mins on 01/21/18; Remains in SR since; on Lovenox 80mg BID; According to , he was taking Xarolto daily as prescribed. Will start Eliquis 5mg BID. 3. Hyperlipidemia - on Lipitor 80mg daily; 5. DM type 2 - on D5 70ml/h; managed by PCP 6. Hx of DVT - FHx of proclivity to clotting; On Lovenox 80mg BID; possible change to Eliquis 5mg BID 7. Dysphasia - PEG tube placement on 01/23/18 MAR reviewed * Echo on 01/23/18 showed EF 60% and mild TR. * From Cardiac standpoint, the pt is stable to tx to rehab. Review of Systems - Review of Systems Constitutional: reports: see HPI <Gissel Hollis - Last Filed: 01/24/18 16:02> Cardiology Progress Note - Objective Vital Signs Temp Pulse Resp BP Pulse Ox 01/24/18 15:26 99 F 75 16 90/74 92 L 01/24/18 11:53 97.7 F 82 18 94/63 91 L 01/24/18 08:00 97.7 F 72 18 96 01/24/18 07:55 97.7 F 72 18 111/75 93 L Admit Weight 166 lb 0.129 oz Weight 166 lb 0.129 oz 01/23/18 01/24/18 01/25/18 06:59 06:59 06:59 Intake Total 1740 608 90 Balance 1740 608 90 - Labs Result Diagrams: 01/24/18 04:34 01/24/18 04:34 - Assessment/Plan Pt. seen and eval. I agree with the A/P by the MUTUEL MACHINE OPERATOR.If he recovers then I would consider him for a Watchman device to decrease the risk of further embolic events.
[2018-01-24 19:17] VITALS: BP 97/59; TEMP 98.5
--- NOTE | 2018-01-24 19:59 | PRG ---
DATE OF SERVICE: 01/24/2018 SUBJECTIVE: Mr. Randall had a PEG tube placed yesterday. He has done well. He has abdominal binder o n. PHYSICAL EXAMINATION: VITAL SIGNS: Temperature is 97, pulse 82, blood pressure 194/63. GENERAL: He is resting. Family notes he does at times verbalize to them, and seems to be know what is going on, but for the most part he is pretty somnolent. ABDOMEN: Soft, nontender. PEG tube site is warm and dry. LABORATORY DATA: Hemoglobin is 17. Glucose 145. ASSESSMENT AND PLAN: Status post PEG tube for CVA and dysphagia. Recommended cleaning the site with soap and water daily. Taught the family about PEG tube care and when it could be removed as the kinjal e come hopefully and the patient's daughter has my phone number and contact me if have any questions about the PEG. At this time, we will follow from a distance. If we can be of further assistance, pl ease do not hesitate to contact me.
[2018-01-24] MEDS ORDERED: Apixaban 5 MG TAB PER TUBE SCH (21:00)
[2018-01-25] MEDS ORDERED: metFORMIN 500 MG TAB PO SCH (09:00)
[2018-01-25] MEDS ORDERED: glyBURIDE 5 MG TAB PO SCH (09:00)
[2018-01-25] MEDS ORDERED: GLYBURIDE PO SCH (09:00)
[2018-01-25] MEDS ORDERED: METFORMIN HCL PO SCH (09:00)
[2018-01-25] MEDS ORDERED: [UNRECOGNIZED DRUG - OTHER] PO SCH (09:00)
== END 2018-01-24 19:40 | DRG 65 ==
LOC: SDC 15:33 → CCU 16:00 → 2SE 01-21 09:13
PROVIDERS: ADMIT Emergency Medicine; ATTEND Emergency Medicine
PROC: B51 Imaging, Veins, Fluoroscopy (ICD-10-PCS; 2018-01-19)
PROC: 0DJ08ZZ Inspection of Upper Intestinal Tract, Via Natural or Artificial Opening Endoscopic (ICD-10-PCS; principal; 2018-01-23)
PROC: 0DH63UZ Insertion of Feeding Device into Stomach, Percutaneous Approach (ICD-10-PCS; 2018-01-23)
DX: I63.9 Cerebral infarction, unspecified (principal); G81.94 Hemiplegia, unspecified affecting left nondominant side; E11.9 Type 2 diabetes mellitus without complications; Z86.718 Personal history of other venous thrombosis and embolism; R13.10 Dysphagia, unspecified; K26.9 Duodenal ulcer, unspecified as acute or chronic, without hemorrhage or perforation; K20.9 Esophagitis, unspecified; Z79.899 Other long term (current) drug therapy; Z79.4 Long term (current) use of insulin; I48.91 Unspecified atrial fibrillation; Z79.01 Long term (current) use of anticoagulants; E78.5 Hyperlipidemia, unspecified; R29.810 Facial weakness; R47.1 Dysarthria and anarthria; R53.1 Weakness; Z96.659 Presence of unspecified artificial knee joint; E03.9 Hypothyroidism, unspecified; K57.90 Diverticulosis of intestine, part unspecified, without perforation or abscess without bleeding
CPT/HCPCS: 36228; 36415; 36416; 70450; 74230; 80048; 80061; 82565; 83036; 83735; 85014; 85018; 85025; 85049; 86677; 93306; 93880; C1769; G8978-GP-CM; G8979-GP-CK; G8987-GO-CM; G8988-GO-CK; G8996-GN-CL; G8996-GN-CM; G8996-GN-CN; G8997-GN-CI; G8997-GN-CK; G8997-GN-CL; J1650; J2001; J2060; J2270; J2704; S0028

== ENCOUNTER 2018-01-27 16:05 | Emergency (ER) | payer MEDICARE, BC ==
[2018-01-27] MEDS ORDERED: Lidocaine 2% Jelly 5 ML TUBE ONE (16:12)
--- NOTE | 2018-01-27 18:24 | RAD ---
KUB: HISTORY: PEG tube check. FINDINGS: Contrast injected into a gastrostomy tube shows contrast collecting in the fundus region of the stoma ch. IMPRESSION: Percutaneous endoscopic gastrostomy tube in position with contrast seen within the stomach. POS: [facility]
== END 2018-01-27 18:31 | disposition home or self-care (01) ==
LOC: ERS 16:05
DX: Z43.1 Encounter for attention to gastrostomy (principal); E11.9 Type 2 diabetes mellitus without complications; Z86.73 Personal history of transient ischemic attack (TIA), and cerebral infarction without residual deficits
CPT/HCPCS: 43760; 74018; B4087

== ENCOUNTER 2018-01-31 06:26 | Emergency (ER) | payer MEDICARE, BC ==
--- NOTE | 2018-01-31 08:08 | RAD ---
ABDOMEN 1 VIEW: Date: 01/31/18 HISTORY: PEG tube removal and replacement. Evaluate for positioning. COMPARISON: 01/27/18. FINDINGS/IMPRESSION: Visualized bowel gas pattern is nonspecific. Radiopaque tubing over the mid abdomen extends through t he gastric fundus where contrast material is contained to the stomach and proximal duodenum. No evidence of leak. POS: [facility]
[2018-01-31] MEDS ORDERED: GASTROGRAFIN 30 ML BOT ONE (16:37)
== END 2018-01-31 07:00 | disposition home or self-care (01) ==
LOC: ERS 06:26
DX: K94.23 Gastrostomy malfunction (principal); E11.9 Type 2 diabetes mellitus without complications; Z86.73 Personal history of transient ischemic attack (TIA), and cerebral infarction without residual deficits
CPT/HCPCS: 43760; 74018; B4087

== ENCOUNTER 2018-02-13 21:51 | Emergency (ER) | payer MEDICARE, BC ==
--- NOTE | 2018-02-13 22:40 | RAD ---
RADIOGRAPH ABDOMEN 1 VIEW: DATE: 02/13/18 TIME: 9:40 p.m. HISTORY: PEG tube placement in 77-year-old male. FINDINGS: Contrast injected into a catheter. A small amount of intraluminal contrast material in the fundus of the stomach. No evidence of extravasation. IMPRESSION: Intraluminal location of tip of gastrostomy tube confirmed in the lumen of the gastric fundus. POS: [facility]
== END 2018-02-13 23:30 | disposition home or self-care (01) ==
LOC: ERS 21:51
DX: K94.23 Gastrostomy malfunction (principal); E11.9 Type 2 diabetes mellitus without complications; Z86.73 Personal history of transient ischemic attack (TIA), and cerebral infarction without residual deficits
CPT/HCPCS: 43760; 74018

== ENCOUNTER 2019-06-01 21:55 | Inpatient (IN) | payer MEDICARE, BC ==
[2019-06-01 22:37] LABS: #Basophils 0.1 thou/uL (0.0-0.2); #Eosinphils 0.5 thou/uL (0.0-0.7); #Lymphocytes 2.9 thou/uL (1.20-3.40); #Monocytes 1.1 thou/uL (0.11-0.59); %Basophils 1.1 % (0.0-1.0); %Eosinophils 5.5 % (0.0-10.0); %Lymphocytes 30.2 % (21.0-51.0); %Monocytes 11.4 % (0.0-10.0); %Neutrophils 51.9 % (42.0-75.0); Hemoglobin 15.5 g/dL (14.0-18.0); Mean Corpuscular HGB CONC 32.8 g/dL (32.0-36.0); Mean Corpuscular Hemoglobin 34.2 pg (27.0-31.0); Mean Platelet Volume 7.8 fL (7.4-10.4); Platelet Count 242 thou/uL (130-400); RBC Distribution Width 12.6 % (11.5-14.5); Red Blood Cell (RBC) Count 4.54 mill/uL (4.70-6.10); White Blood Cell (WBC) Count 9.6 thou/uL (4.8-10.8)
[2019-06-01] MEDS ORDERED: Acetaminophen 650 MG Suppository ONE (22:48)
[2019-06-01 22:49] LABS: Bacteria/HPF None Seen HPF (None Seen); Bilirubin Negative (Negative); Blood, Urine Negative (Negative); Clarity Clear (Clear); Glucose, Urine (Dipstick) Normal (Negative); Leukocyte 25 Leu/uL (Negative); Mucous/LPF Rare LPF (<2+); Nitrite Negative (Negative); Protein, Urine (Dipstick) 10 mg/dL (Neg-Trace); RBC/HPF 0-3 HPF (0-3); Renal Epithelial 0-3 HPF (None Seen); Squamous Epithelial None Seen HPF (0-3); Transitional Epithelial 0-3 HPF (None Seen)
--- NOTE | 2019-06-01 22:52 | RAD ---
XR Abdomen 1 View/KUB History: Abdominal distention Comparison: Radiograph February 13, 2018 Findings: No dilated air-filled loops of large or small bowel. Evaluation for free air is limited wit hout an upright exam. Mild dextroscoliosis. Multilevel degenerative disc space disease. Moderate degenerative changes of both hip joints. No abnormal calcifications project over the renal s hadows. Impression: No acute abdominal abnormality.
--- NOTE | 2019-06-01 22:57 | RAD ---
XR Chest 1 View Portable History: Aspiration Comparison: Radiograph February 09, 2018 Findings: The lungs are without confluent airspace consolidation, pneumothorax, or effusion. There ap pears be a percutaneous feeding tube projecting over the left upper quadrant of the abdomen. No acute osseous abnormality. Cardiac silhouette and mediastinal contours are similar. Impression: No acute intrathoracic abnormality.
[2019-06-01 22:58] LABS: ALT (SGPT) 68 U/L (8-55); AST (SGOT) 78 U/L (5-34); Albumin 3.8 g/dL (3.4-4.8); Alkaline Phosphatase 223 U/L (40-110); Anion Gap 16 mmol/L (10-20); BUN (Urea Nitrogen) 16 mg/dL (8.4-25.7); Calc. Creatinine Clearance 0 mL/min (70-130); Carbon Dioxide 29 mmol/L (23-31); Chloride 99 mmol/L (98-107); Estimated GFR-MDRD Greater than 90; Globulin 4.6 g/dL (2.4-3.5); Glucose 142 mg/dL (83-110); Potassium 3.9 mmol/L (3.5-5.1); Protein, Total 8.4 g/dL (5.8-8.1); Sodium 140 mmol/L (136-145)
[2019-06-01] MEDS ORDERED: Piperacillin/Tazobactam 4.5 GM VIAL ONE (23:02)
[2019-06-01] MEDS ORDERED: Vancomycin HCl 1.5 GM in Sodium Chloride 0.9% 250 ML 300 ML IVPB SCH (23:45)
[2019-06-02] MEDS ORDERED: Acetaminophen 325 MG TAB PO PRN (03:55)
[2019-06-02] MEDS ORDERED: Ondansetron PF 4 MG/2 ML Vial IVP PRN (03:55)
[2019-06-02] MEDS ORDERED: Acetaminophen 650 MG Suppository PR PRN (03:55)
--- NOTE | 2019-06-02 04:32 | PDOC.FPRHP ---
- History of Present Illness Chief Complaint: Not tolerating PEG tube feeds, Gurgling at mouth History of Present Illness: 79 year old male presents from [facility]. The reports that nursing staff was having difficulty with PEG tube feeds and patient was noted to have gurgling and increased work of breathing. She states that he got this new PEG tube 2 months ago, and since that time, patient has had intermittent coughing spells. Patient was transferred to [facility] earlier today from the [place] where he was previously being treated. Nursing staff noted him to have difficulty controlling his secretions and he reportedly was in some mild distress at that time. They were concerned there was an issue with the feeding tube, because they have been getting return on the feeds shortly after adminstering. They called Paula commissioner public works physician who prompted them to go to ED for PEG tube evaluation. When EMS arrived, patient was satting in the 80's on RA. They placed him on a mask and upon arrival to ED, patient was deep suctioned which improved his sats and patient was transitioned back to RA satting in the upper 90's. Patient was noted to be febrile to 100.7 and tachypneic. Sepsis workup was initiated, and lactic acid was noted to be 6. Patient was given 2L of NS down in ED. He was started on Vanc, Levoquin, and Zosyn. BP at the time was stable. Shortly after arriving in ED for initial evaluation, patient went into unstable SVT with HR in 170's and BP in 70's. ED staff notified me that patient was DNR. I called patient's , Grisel, and she instructed me not to shock patient or provide medications to reverse rhythm or bring down heart rate as he would not want that. I confirmed this during two separate phone calls. She informed me that they want very minimal measures, but are ok with treating the presumptive pneumonia and providing fluids for support. Patient unable to verbalize wishes as he has been nonverbal since massive stroke in December of 2017. Prior to stroke, patient was very active. Patient was transferred to medical floor as opposed to ICU/IMCU/telemetry due to desires for low intervention. I spoke to family including and daughter once patient was transferred to the floor. I again had a discussion regarding goals of care. They made it clear that they did not want patient to be cardioverted or have any medications to reverse heart rhythm. Upon arrival to floor, patient's SVT had resolved spontaneously and BP was in low 100's. Discussed palliative care/hospice with family. Will have palliative care come by in the AM to discuss further. ED Course: Vanc, Zosyn, Levoquin, 2L NS - Allergies/Adverse Reactions Allergies Allergy/AdvReac Type Severity Reaction Status Date / Time No Known Allergies Allergy Unverified 01/19/18 16:30 - Home Medications Medication Instructions Recorded Confirmed Type Levothyroxine Sodium [Unithroid] 75 mcg PER TUBE DAILY 01/21/18 06/02/19 History Apixaban [Eliquis] 5 mg PER TUBE BID #60 tab 01/24/18 06/02/19 Rx Albuterol Sulfate [Albuterol 2.5 mg NEB Q6H PRN 06/02/19 06/02/19 History Sulfate Neb] Atorvastatin Calcium [Lipitor] 80 mg PER TUBE HS 06/02/19 06/02/19 History Azelastine HCl [Azelastine HCl 1 drop EA EYE BID 06/02/19 06/02/19 History 0.05% Ophth Soln] Calamine/Menthol/Petrolat/Zinc 1 applic TOP BID 06/02/19 06/02/19 History [Remedy Calazime Protect Paste] Calcium Carbonate [Calcium] 500 mg PER TUBE Q6HR PRN 06/02/19 06/02/19 History Hypromellose [Isopto Tears 1 drop EA EYE BID PRN 06/02/19 06/02/19 History Lubricant Eye Drops] Loperamide HCl [Anti-Diarrheal] 2 mg PER TUBE DAILY PRN 06/02/19 06/02/19 History Loratadine 10 mg PER TUBE DAILY 06/02/19 06/02/19 History Magnesium Hydroxide [Milk of 30 ml PER TUBE DAILY PRN 06/02/19 06/02/19 History Magnesia] Menthol/Zinc Oxide [Remedy 113 gm TOP PRN PRN 06/02/19 06/02/19 History Calazime Protect Paste] Mirtazapine 7.5 mg PER TUBE HS 06/02/19 06/02/19 History Multivit-Minerals/Ferrous Gluc 15 ml PER TUBE DAILY 06/02/19 06/02/19 History [Centrum Multivit-Mineral Liq] Polyethylene Glycol 3350 [Glycolax] 17 gm PER TUBE DAILY PRN 06/02/19 06/02/19 History Ranitidine HCl [Acid Glost Tile Shader 150] 150 mg PER TUBE DAILY 06/02/19 06/02/19 History Simethicone [Mylicon Chewable] 80 mg PER TUBE Q8HR PRN 06/02/19 06/02/19 History Sodium Chloride [Saline Mist 0.65% 2 spray EA NARE BID PRN 06/02/19 06/02/19 History Nasal Allison] Triamcinolone Acetonide 1 applic TOP BID 06/02/19 06/02/19 History [Triamcinolone Acetonide 0.1% Ointment] guaiFENesin [Scot-Tussin 30 ml PER TUBE BID PRN 06/02/19 06/02/19 History Expectorant] metFORMIN HCl [Metformin HCl] 500 mg PER TUBE BID 06/02/19 06/02/19 History - History PMHx: Cerebral infarction, Aphasia, Dysphasia, Dysarthria following cerebral infarction, Type II DM, HLD, Hypothyroidism, Atrial fibrillation, Hx DVT, Diverticulosis, Hemiplegia left sided following cerebral infarction, GERD PSHx: PEG tube placement FHx: Non-contributory Social: Recently transferred from [facility] to [facility]. Nonverbal and unable to perform ADL's 2/2 deficits from cerebral infarction in 2018. - Review of Systems ROS unobtainable: other (Nonverbal, minimal history obtained from family to include intermittent coughing spells, gurgling at the mouth, scrotal irritation since yesterday) - Vital signs BP: 101/65, Pulse: 96 (down from 170's), RR: 22, Temp 98.2F (100.7F high), weight: 78 kg - Physical Exam -Constitutional: Shallow respirations, non-verbal, mild distress, aphasic -HEENT: Dry MM, Excessive oral secretions, Edentulous Heart: pulses present -Heart: Tachycardia -Lungs: Coarse rhonchi throughout, shallow respirations, increased oral secretions Abdomen: soft -Abdomen: Mild abdominal distention, possible left sided ventral hernia -Musculoskeletal: Markedly decreased left upper and lower extremity strength -Skin: Significant scrotal erythema -Heme/Lymphatic: Variable areas of ecchymosis -Psychiatric: Unable to assess FMR H&P: Results - Labs Result Diagrams: 06/01/19 22:14 06/01/19 22:14 Lab results: WBC 9.6 thou/uL (4.8-10.8) 06/01/19 22:14 Hgb 15.5 g/dL (14.0-18.0) 06/01/19 22:14 Hct 47.3 % (42.0-52.0) 06/01/19 22:14 MCV 104.0 fL (78.0-98.0) H 06/01/19 22:14 Plt Count 242 thou/uL (130-400) 06/01/19 22:14 Neutrophils % 51.9 % (42.0-75.0) 06/01/19 22:14 Sodium 140 mmol/L (136-145) 06/01/19 22:14 Potassium 3.9 mmol/L (3.5-5.1) 06/01/19 22:14 Chloride 99 mmol/L (98-107) 06/01/19 22:14 Carbon Dioxide 29 mmol/L (23-31) 06/01/19 22:14 BUN 16 mg/dL (8.4-25.7) 06/01/19 22:14 Creatinine 0.73 mg/dL (0.7-1.3) 06/01/19 22:14 Glucose 142 mg/dL (83-110) H 06/01/19 22:14 Lactic Acid 3.0 mmol/L (0.5-2.2) H 06/02/19 01:39 Calcium 10.0 mg/dL (7.8-10.44) 06/01/19 22:14 Total Bilirubin 1.0 mg/dL (0.2-1.2) 06/01/19 22:14 AST 78 U/L (5-34) H 06/01/19 22:14 ALT 68 U/L (8-55) H 06/01/19 22:14 Alkaline Phosphatase 223 U/L (40-110) H 06/01/19 22:14 Serum Total Protein 8.4 g/dL (5.8-8.1) H 06/01/19 22:14 Albumin 3.8 g/dL (3.4-4.8) 06/01/19 22:14 Urine Ketones Trace mg/dL (Negative) A 06/01/19 22:35 Urine Blood Negative (Negative) 06/01/19 22:35 Urine Nitrite Negative (Negative) 06/01/19 22:35 Ur Leukocyte Esterase 25 Bhakti/uL (Negative) 06/01/19 22:35 Urine RBC 0-3 HPF (0-3) 06/01/19 22:35 Urine WBC 4-6 HPF (0-3) A 06/01/19 22:35 Ur Squamous Epith Cells None Seen HPF (0-3) 06/01/19 22:35 Urine Bacteria None Seen HPF (None Seen) 06/01/19 22:35 FMR H&P: A/P - Problem List (1) Aspiration pneumonia Current Visit: Yes Status: Acute Code(s): J69.0 - PNEUMONITIS DUE TO INHALATION OF FOOD AND VOMIT (2) Septic shock Current Visit: Yes Status: Acute Code(s): A41.9 - SEPSIS, UNSPECIFIED ORGANISM; R65.21 - SEVERE SEPSIS WITH SEPTIC SHOCK (3) SVT (supraventricular tachycardia) Current Visit: Yes Status: Acute Code(s): I47.1 - SUPRAVENTRICULAR TACHYCARDIA (4) Dysphagia Current Visit: No Status: Acute Code(s): R13.10 - DYSPHAGIA, UNSPECIFIED Comment: water Gustafson protocol per speech therapy recs, not safe to eat at this point, possible MBS when more alert (5) Right thalamic infarction Current Visit: No Status: Acute Code(s): I63.9 - CEREBRAL INFARCTION, UNSPECIFIED (6) Diabetes mellitus type 2 in nonobese Current Visit: No Status: Chronic Code(s): E11.9 - TYPE 2 DIABETES MELLITUS WITHOUT COMPLICATIONS (7) Diverticulosis Current Visit: No Status: Chronic Code(s): K57.90 - DVRTCLOS OF INTEST, PART UNSP, W/O PERF OR ABSCESS W/O BLEED (8) Hx of deep venous thrombosis Current Visit: No Status: Chronic Code(s): Z86.718 - PERSONAL HISTORY OF OTHER VENOUS THROMBOSIS AND EMBOLISM Comment: can't swallow Xarelto right now , giving full dose Lovenox (9) Hyperlipidemia Current Visit: No Status: Chronic Code(s): E78.5 - HYPERLIPIDEMIA, UNSPECIFIED Comment: LDL elevated at 140 on Atorvastatin 40mg, increased to 80mg daily (10) Hypothyroidism Current Visit: No Status: Chronic Code(s): E03.9 - HYPOTHYROIDISM, UNSPECIFIED - Plan 79 year old male presents for NH 1. Severe sepsis likely 2/2 aspiration PNA - Continue broad spectrum antibiotics (Vanc, Zosyn 06/01) - Fluid resuscitation, patient s/p 3L NS - Maintenance fluids with LR, with intermittent boluses as necessary for BP - Per 's wishes, comfort measures at this time. No heroic measures to be taken - Blood and urine cultures pending - UA negative for infection - CXR with no acute abnormalities demonstrated, although likely volume down and repeat CXR in AM may provide more info - Patient clinically presents with PNA to include respiratory distress, hypoxia , and signs of aspiration given inability to tolerate secretions - Will provide scopalamine patch PRN - Continue PEG tube feeds; discussed continued risk for aspiration with family. Patient was also previously receiving - Procal 0.07 - Discussed hospice with family. They would like to think about further. Palliative care has been consulted to discuss goals of care further. 2. Acute hypoxic respiratory failure, resolved - Likely 2/2 above - O2 supplementation PRN - Resolved with deep suctioning - Continue suctioning 3. SVT, resolved - Unstable SVT in ED (see HPI for full details regarding family discussion) - Did not initiate cardioversion or give adenosine per family wishes - Observation and comfort measures per family wishes - Resolved spontaneously after transfer to floor 4. DM type II - Will resume home meds - Glucerna 1.5 via tube feeds 5x/day - Hyperglycemia protocol - ACHS accuchecks 5. Hypothyroidism - Continue home meds - Will check TSH given recent SVT 6. HLD - Continue home meds 7. GERD - Continue home meds 8. Hx DVT - High risk of falls, not currently on anticoagulation 9. Documented history of Afib - SVT on EKG, but not noted to be in afib - Not currently on anticoagulation - Stroke in December 2017 with severe deficits 10. Lactic acidosis - Initially 6.0, decreased to 3.1 after fluids 11. Elevated liver enzymes - May be due to septic shock, uncertain of baseline function - Will trend liver enzymes 12. Elevated alkaline phosphatase - Uncertain of baseline - Elevated protein - Will get UPEP and SPEP to further evaluate - No known cancer history 13. Scrotal erythema - Per patient's , he was sitting in dirty diaper for many hours before it was changed. Shortly after she noted scrotum to be extremely red and irritated. On exam it appears erythematous. Do not appreciate any warm or swelling. Plaque over right superior aspect of scrotum. - Consider ultrasound or imaging if concerns arise for foreniers gangrene - Per , the erythema is improved compared to yesterday - Continue to monitor closely - Patient currently on Vancomycin, which would cover cellulitis DVT PPX: SCD'd d/t high risk for falls Code Status: DNR-DNI, no cardioversion Dispo: Admit to medical. Anticipate LOS >48 hours. FMR H&P: Upper Level - Plan Date/Time: 06/02/19 060 I, [], have evaluated this patient and agree with findings/plan as outlined by manager intern resident. Pertinent changes/additions are listed here. Addendum - Attending - Attending Attestation Date/Time: 06/02/19 [id number] I personally evaluated the patient and discussed the management with Dr. Hernandez at time of admission. I agree with the History, Examination, Assessment and Plan documented above with any addition or exceptions noted below.
[2019-06-02] MEDS ORDERED: Lactated Ringer's 1,000 ML IV SCH (04:45)
[2019-06-02 04:58] VITALS: BMI 25.4
[2019-06-02] MEDS ORDERED: Scopolamine 1.5 mg/72 hour Patch TD SCH (05:00)
[2019-06-02] MEDS ORDERED: Piperacillin/Tazobactam 4.5 GM in Sodium Chloride 0.9% 100 ML IVPB SCH (06:00)
[2019-06-02] MEDS ORDERED: Dextrose 5% in Water 1,000 ML IV PRN (06:39)
[2019-06-02] MEDS ORDERED: Dextrose 50% Abboject 50 ML SYRINGE SLOW IVP PRN (06:39)
[2019-06-02] MEDS ORDERED: HumaLOG 300 UNITS/3 ML VIAL SC PRN (06:39)
--- NOTE | 2019-06-02 07:54 | PDOC.EVN ---
Event Note - Event Note Event Note: Visited patient at bedside Patient is alert, occassional gurgling resolved with suction RR 18-20, 95% on RA, no distress mild crackles bilaterally, no wheezes cont suction as needed scopolamine patch Discussed goals of care with at bedside agrees hospice care is what she desires for going forward She is MPOA as is non-verbal since massive stroke in 2018 palliative care already consulted, will consult hospice
[2019-06-02 08:38] LABS: ALT (SGPT) 48 U/L (8-55); AST (SGOT) 57 U/L (5-34); Albumin 2.9 g/dL (3.4-4.8); Alkaline Phosphatase 145 U/L (40-110); Anion Gap 11 mmol/L (10-20); BUN (Urea Nitrogen) 13 mg/dL (8.4-25.7); Bilirubin, Total 1.1 mg/dL (0.2-1.2); Calc. Creatinine Clearance 113 mL/min (70-130); Calcium 8.2 mg/dL (7.8-10.44); Carbon Dioxide 26 mmol/L (23-31); Chloride 108 mmol/L (98-107); Estimated GFR-MDRD Greater than 90; Globulin 3.4 g/dL (2.4-3.5); Glucose 135 mg/dL (83-110); Potassium 3.7 mmol/L (3.5-5.1); Protein, Total 6.3 g/dL (5.8-8.1); Sodium 141 mmol/L (136-145)
[2019-06-02] MEDS ORDERED: Vancomycin HCl 1 GM in Sodium Chloride 0.9% 250 ML 250 ML IVPB SCH (09:00)
[2019-06-02] MEDS ORDERED: Clotrimazole 1 % Cream 30 GM TUBE TOP SCH (09:00)
--- NOTE | 2019-06-02 09:01 | RAD ---
XR Chest 1 View Portable HISTORY: Respiratory distress COMPARISON: 06/01/2019 study. FINDINGS: Heart size is borderline. There are atherosclerotic changes of aorta lungs appear clear of any infiltrative process. Minimal interstitial change in the bases could represent atelectasis or scar. IMPRESSION: Stable exam.
[2019-06-02 12:02] VITALS: BP 99/55; TEMP 98.3
[2019-06-02] MEDS ORDERED: Vancomycin HCl 1 GM in Premix Bag 1 BAG IVPB SCH (13:00)
[2019-06-02] MEDS ORDERED: Vancomycin HCl 1.25 GM in Sodium Chloride 0.9% 250 ML 250 ML IVPB SCH (13:00)
[2019-06-02] MEDS ORDERED: Amoxicillin/Potassium Clav 600 mg/5 ml Oral Suspension PER TUBE SCH (21:00)
--- NOTE | 2019-06-03 05:01 | DIS ---
DATE OF ADMISSION: 06/02/2019 DATE OF DISCHARGE: 06/02/2019 ADMITTING ATTENDING: Dr. Rick Edward. DISCHARGE ATTENDING: Dr. Aquiles Luciano. CONSULTS: Palliative care, Hospice. PROCEDURES: None. PRIMARY DIAGNOSIS: Sepsis secondary to aspiration pneumonia. SECONDARY DIAGNOSES: Acute hypoxic respiratory failure, supraventricular tachycardia, diabetes mellitus type 2, hypothyroidism, hyperlipidemia, gastroesophageal reflux disease, history of deep venous thrombosis, history of atrial fibrillation, transaminitis, history of massive stroke. DISCHARGE MEDICATIONS: Levothyroxine 75 mcg daily, apixaban 5 mg b.i.d., polyethylene glycol p.r.n., calcium carbonate as needed, azelastine eyedrops as needed, metformin 500 b.i.d., magnesium hydroxide as needed, loratadine as needed, loperamide as needed, simethicone as needed, ranitidine 150 mg daily, mirtazapine 7.5 mg at bedtime, albuterol as needed, triamcinolone as needed, guaifenesin as needed, atorvastatin 80 mg at bedtime. New medications: 1. Augmentin 840 mg per tube twice daily for 7 days. 2. Clotrimazole 1% b.i.d. to scrotum. Discontinued medications: None HISTORY OF PRESENT ILLNESS/HOSPITAL COURSE: This is a 79-year-old female with history of massive stroke in 2018, which left him paralyzed on the left side and nonverbal. The patient has had very little gain from a neurological standpoint since that time per the family. He was transferred to the ER from [facility] after an episode of apparent aspiration. He was noted to be gurgling and having increased work of breathing and coughing spells. In the ER, his initial O2 saturation was noted to be 80%. After deep suction, his O2 saturation came up to 95%. He was found to be febrile to 100.7 and tachypneic in the ED. Lactic acid was elevated and he was given fluid resuscitation as well as started on broad-spectrum antibiotics. Shortly after initial evaluation and fluid resuscitation, antibiotics were started. The patient went into SVT spontaneously. He is known to have a heart rate in the 170s and blood pressures in the 70s systolic. The patient's was consulted and she was adamant that she wanted no intervention. She was adamant that she wanted no cardioversion and no chemical cardioversion and thus the patient was transferred to the medical floor for antibiotics and observation and he spontaneously resolved the SVT. The patient was afebrile from the time that he was transferred to the floor. His O2 sats were in the high 90s on room air and did not appear to have increased work of breathing. Multiple conversations were had with the patient's who is the MPOA and his daughter, who is also very involved in his care. The and daughter were clear that they do want to go forward with hospice care favoring comfort measures and avoiding further hospitalizations as able and avoiding any unnecessary procedures. They are very aware that his potential for neurological recovery is extremely low and thus they would really prefer to keep him comfortable with what time he has left. Palliative Care was consulted and the patient has a meeting with hospice set up at [facility] for tomorrow. I continued his current home medications for now, but anticipate that many of them will be discontinued once he is admitted to the Hospice Service. He is sent home with a 7-day course of Augmentin to cover for suspected aspiration pneumonia. His scrotal erythema is being treated with clotrimazole as this is a suspected candidal infection. DISPOSITION: Guarded overall. Plans to enter hospice tomorrow. DISCHARGE INSTRUCTIONS: Location: [facility]. Diet: Tube feeds. Activity: Bed-bound. Followup hospice care appointment tomorrow, SNF team at the [facility]. Job ID: [id number]
[2019-06-03 14:10] LABS: Folate,Hemolysate 436.2 ng/mL (Not Estab.); Hematocrit 39.4 % (37.5-51.0); RBC Folate Test Component 1107 ng/mL (>498)
== END 2019-06-02 16:00 | DRG 871 ==
LOC: ERS 21:55 → SURG A 06-02 03:33
PROVIDERS: ADMIT Family Medicine; ATTEND Family Medicine
DX: A41.9 Sepsis, unspecified organism (principal); R65.21 Severe sepsis with septic shock; J69.0 Pneumonitis due to inhalation of food and vomit; J96.01 Acute respiratory failure with hypoxia; I47.1 Supraventricular tachycardia; E11.9 Type 2 diabetes mellitus without complications; E03.9 Hypothyroidism, unspecified; E78.5 Hyperlipidemia, unspecified; K21.9 Gastro-esophageal reflux disease without esophagitis; Z86.718 Personal history of other venous thrombosis and embolism; R79.89 Other specified abnormal findings of blood chemistry; R74.8 Abnormal levels of other serum enzymes; Z66 Do not resuscitate; N50.89 Other specified disorders of the male genital organs; K57.90 Diverticulosis of intestine, part unspecified, without perforation or abscess without bleeding; Z79.84 Long term (current) use of oral hypoglycemic drugs; Z79.899 Other long term (current) drug therapy
CPT/HCPCS: 36415; 36416; 71045; 74018; 80053; 81003; 81015; 82607; 82747; 83605; 84145; 84165; 84443; 85014; 85025; 87040; 93005; J1956; J2543; J3370; J3490; J7050